=== PATIENT | male | born 1955 | race Caucasian/White ===

== ENCOUNTER → 2017-08-17 | Outpatient (CLI) | payer BC ==
[2017-08-17 18:13] LABS: Albumin, Blood 4.1 g/dL (3.4-5.0); Albumin/Globulin Ratio 1.1 (0.8-1.8); Bilirubin, Total 0.6 mg/dL (0.1-1.0); Bun/Creatinine Ratio 21.3 (12.0-20.0); Calcium, Blood 9.3 mg/dL (8.5-10.1); Creatinine, Blood 1.27 mg/dL (0.60-1.20); Globulin, Blood 3.8 g/dL (2.2-4.0); Potassium, Blood 4.3 mmol/L (3.5-5.5); Total Protein, Blood 7.9 g/dL (6.4-8.2)
== END ==
LOC: LAB EV 17:58 → LAB SHORT 17:58
PROVIDERS: Physician Assistant
DX: I10 Essential (primary) hypertension (principal)
CPT/HCPCS: 80053

== ENCOUNTER 2018-12-21 08:49 | Day surgery (SDC) | payer OTHER ==
[~2018-12-21] VITALS: Ht 177.8 cm; Wt 95.0 kg
[~2018-12-21 08:49] MED LIST: ATOR20 PO; FAMO20 PO; IBUP400 PO; LISI20 PO
[2018-12-21] MEDS ORDERED: ZESTORETIC 20-121 EA PO (09:31)
--- NOTE | 2018-12-21 12:15 | NUR ---
10CC AIR REMOVED FROM TR BAND. -BLEEDING OR SWELLING.
--- NOTE | 2018-12-21 12:58 | NUR ---
R WRIST TR BAND REMOVED. -BLEEDING OR SWELLING. PUNCTURE AREA CLEANED WITH NS. CLOTH DOT DRSG PLACED. R WRIST SPLINT REAPPLIED. IV REMOVED. PT VERBALIZED UNDERSTANDING OF WRITTEN AND VERBAL D/C INST. PT TAKEN OUT OF THE HRT CENTER VIA W/C.
== END 2018-12-21 12:59 | disposition home or self-care (01) ==
LOC: MHTC 08:49
DX: Z01.810 Encounter for preprocedural cardiovascular examination (principal); I25.119 Atherosclerotic heart disease of native coronary artery with unspecified angina pectoris; I35.0 Nonrheumatic aortic (valve) stenosis; I10 Essential (primary) hypertension; E78.5 Hyperlipidemia, unspecified; K21.9 Gastro-esophageal reflux disease without esophagitis; E66.9 Obesity, unspecified; Z87.891 Personal history of nicotine dependence; Z87.442 Personal history of urinary calculi; Z79.899 Other long term (current) drug therapy; Z88.5 Allergy status to narcotic agent
CPT/HCPCS: 93454; 99152; C1769; C1894; J1644; J2250; J3010; J7030; Q9967

== ENCOUNTER 2025-03-03 09:33 | Day surgery (SDC) | payer OTHER ==
[2025-03-03] VITALS (18 sets, daily range): BP systolic 112–189; BP diastolic 70–120
[~2025-03-03] VITALS: Ht 177.8 cm; Wt 84.1 kg
[~2025-03-03 09:33] MED LIST changes: +ASPI81CH PO; +Acetaminophen650 M1 PO; +HYDCHL25 PO; +TAMS.4ER PO; +ZESTORETIC 20-121 EA PO
--- NOTE | 2025-03-03 09:56 | NUR ---
03/03/25 0956 Yue oSlis CONFIRMED AND REVIEWED H&P, MEDCICATIONS, ALLERGIES, MEDICAL HISTORY, RESPIRATORY HISTORY, VITAL SIGNS, 3-LEAD EKG, CONSENTS, AND PHYSICIAN ORDERS. PATIENT CONFIRMS NPO STATUS AND AGREES WITH SCHEDULED PROCEDURE. MONITOR INTACT WITH CONTINUOUS PULSE OXIMETRY, CAPNOGRAPHY, 3-LEAD EKG, INTERMITTENT BP. SUPPLEMENTAL O2 TO BE TITRATED THROUGHOUT PROCEDURE TO MAINTAIN O2 SATURATION ABOVE 90%. PATIENT DETERMINED TO BE ASA APPROPRIATE FOR PROPOFOL SEDATION PRIOR TO START OF PROCEDURE BY DR. JOHNSON.
--- NOTE | 2025-03-03 10:17 | NUR ---
PATIENT REPORTS TAKING ALL COLON PREP PRESCRIBED, BUT UNABLE TO DESCRIBE RESULTS HE REPORTS NEVER LOOKING AT THEM.
--- NOTE | 2025-03-03 10:19 | NUR ---
Patient States Post-Procedure ride home has been arranged with friend, Jez.
[2025-03-03] MEDS ORDERED: Ondansetron HCl 2 MG / ML 2ML Vial ONE (10:29)
--- NOTE | 2025-03-03 11:29 | NUR ---
TO STEP POST PROCEDURE. A/O X 3. DENIES PAIN, NAUSEA, SOB. DECLINES PO. DC'D IV INTACT. DRESSED AT BEDSIDE. DC'D VIA WC TO PRIVATE CAR WITH DIRECTOR OF SOLUTIONS ARCHITECTURE.
== END 2025-03-03 11:30 | disposition home or self-care (01) ==
LOC: ORSCMMR 09:33 → ORD 11:00 → ORSCMMR 11:30 → ORD 13:30
PROVIDERS: Family Medicine
PROC: 0DJD8ZZ Inspection of Lower Intestinal Tract, Via Natural or Artificial Opening Endoscopic (ICD-10-PCS; principal; 2025-03-03 11:00)
DX: Z12.11 Encounter for screening for malignant neoplasm of colon (principal); K57.30 Diverticulosis of large intestine without perforation or abscess without bleeding; Z86.0101 Personal history of adenomatous and serrated colon polyps; I10 Essential (primary) hypertension; E78.5 Hyperlipidemia, unspecified; N40.0 Benign prostatic hyperplasia without lower urinary tract symptoms; I25.10 Atherosclerotic heart disease of native coronary artery without angina pectoris; I73.9 Peripheral vascular disease, unspecified; Z79.82 Long term (current) use of aspirin; Z79.899 Other long term (current) drug therapy; Z87.891 Personal history of nicotine dependence
CPT/HCPCS: J2405; J2704; J7120